=== PATIENT | male | born 1930 | race Caucasian/White ===

== ENCOUNTER → 2017-01-29 | Outpatient (CLI) | payer OTHER, MEDICARE | LOC: FCPNEURO 21:00 | PROVIDERS: ATTEND Psychiatry & Neurology Sleep Medicine | DX: G47.39 Other sleep apnea (principal) ==

== ENCOUNTER → 2018-10-08 | Outpatient (CLI) | payer OTHER, MEDICARE | LOC: BHFA 08:30 | PROVIDERS: ATTEND Internal Medicine Cardiovascular Disease | DX: I50.9 Heart failure, unspecified (principal) ==

== ENCOUNTER → 2018-10-13 | Outpatient (CLI) | payer OTHER, MEDICARE | LOC: BHFA 09:30 | PROVIDERS: ATTEND Internal Medicine Cardiovascular Disease | DX: R06.02 Shortness of breath (principal); R09.89 Other specified symptoms and signs involving the circulatory and respiratory systems; I50.31 Acute diastolic (congestive) heart failure; I25.10 Atherosclerotic heart disease of native coronary artery without angina pectoris ==

== ENCOUNTER → 2018-10-16 | Outpatient (CLI) | payer OTHER, MEDICARE | LOC: BHLMT 14:45 | PROVIDERS: ATTEND Internal Medicine Cardiovascular Disease | DX: R09.89 Other specified symptoms and signs involving the circulatory and respiratory systems (principal); I25.10 Atherosclerotic heart disease of native coronary artery without angina pectoris; I10 Essential (primary) hypertension; E78.5 Hyperlipidemia, unspecified ==

== ENCOUNTER → 2018-10-28 | Outpatient (CLI) | payer OTHER, MEDICARE | LOC: BHFA 08:30 | PROVIDERS: ATTEND Internal Medicine Cardiovascular Disease | DX: R06.02 Shortness of breath (principal); I50.9 Heart failure, unspecified | CPT/HCPCS: 78452; 93017; A9500; J2785 ==

== ENCOUNTER 2018-12-03 08:59 | Day surgery (SDC) | payer OTHER, MEDICARE ==
--- NOTE | 2018-12-03 08:52 | PDPROPOC ---
Sedation Plan of Care Sedation Plan of Care: vital signs stable, mental status noted, patient educated of risks, benefits, alternatives, patient can tolerate sedation ASA Classification: ASA 3 Planned drugs: fentanyl, midazolam Mallampati Score: Class 2 Mallampati Reference Image: Patient passed 3-3-2 rule?: Yes
--- NOTE | 2018-12-03 08:52 | PDHPUP ---
History & Physical Update H&P update statement: This history and physical update is based on an assessment of the patient which was completed after admission or registration (within 24 hours), but prior to the surgery/procedure. H&P update: H&P reviewed & patient examined, no change in patient's condition since H&P completed
[~2018-12-03 08:59] MED LIST: ACETAMINOPHEN 325 MG TAB PO PRN; ASPIRIN EC 325 MG TAB PO ONE; DIAZEPAM 5 MG TAB PO ONE; FAMOTIDINE 20 MG TAB PO ONE; NITROGLYCERIN 0.4 MG BTL SL PRN; NS 1,000 ML IV SCH; TEMAZEPAM 15 MG CAP PO PRN; diphenhydrAMINE 25 MG CAP PO ONE
[2018-12-03 09:36] LABS: PLATELET COUNT 147 10^3/uL (150-400)
[2018-12-03 09:52] LABS: INR 1.09 (0.83-1.16); PROTIME(PATIENT) 14.3 SEC (12.0-15.0)
--- NOTE | 2018-12-03 09:56 | CPEKG ---
Test Reason : OPEN Blood Pressure : / mmHG Vent. Rate : 058 BPM Atrial Rate : 059 BPM P-R Int : 188 ms QRS Dur : 100 ms QT Int : 426 ms P-R-T Axes : 046 072 027 degrees QTc Int : 419 ms Sinus rhythm Confirmed by Imer Cerda ([id number]) on 12/03/2018 9:55:39 AM Referred By: Confirmed By:Imer Cerda
[2018-12-03] MEDS ORDERED: LIDOCAINE 1% 300 MG/30 ML SDV ONE (10:24)
[2018-12-03] MEDS ORDERED: IOPAMIDOL (ISOVUE-370) 150 ML BTL IV ONE (10:24)
[2018-12-03] MEDS ORDERED: MIDAZOLAM 2 MG/2 ML VIAL ONE (10:24)
[2018-12-03] MEDS ORDERED: fentaNYL 100 MCG/2 ML INJ ONE (10:24)
--- NOTE | 2018-12-03 11:07 | PDDXCAT ---
Diagnostic Cath Note - . Date: 12/03/18 Clay Stain Mixer: Kate Indication: other (PHTN, CHF, CAD, NYHA Class III heart failure) - Procedure Access: right groin Procedure: left heart catheterization, coronary angiography, left ventriculogram - Materials Left Heart Cath size: 6F Left Heart Cath materials: JL3.5, JR4.0, pigtail Right Heart Cath size: 7F Right Heart Cath materials: PWP catheter - Findings-Left Heart Catheterization LM: The left main is 3mm in size and bifurcates into a LAD and circumflex system. The vessel is totally occluded with AASEL 0 flow, with only a trickle of flow into a ramus vessel that is quite tiney and less than 0.5 mm in size. LAD: The left anterior descending is totally occluded proximally with ASAEL 0 flow. LCX: The circumflex is totally occluded proximally with ASAEL 0 flow. RCA: The right coronary artery system is dominant. There is 80% proximal stenosis and diffuse disease throughout the body of the vessel. There is evidence of right to left collaterals to an LAD septal branch. rSVG: The rSVG to the PDA/PLV vein graft is widely patent. The rSVG to the high left circumflex of the OM system is widely patent. There is ASAEL III flow throughout. NAVARRO: The NAVARRO to the LAD is widely patent and there is ASAEL III flow. EDP: 17mmHg LVEF: 40-45% Wall motion: On the LV gram there is mildly decreased LV systolic function. The EF is 40-45%. There is anterior wall and apical hypokinesis. There is severe mitral regurgitation on pressurized injection. The visualized portion of the thoracic aortic valve reveals three sinuses of valsalva most consistent with a trileaflet valve. There is no gradient on pullback across the aortic valve. There is no evidence of donovan dissection or aneurysm formation of the thoracic aorta. - Findings-Right Heart Catheterization RA: 14/14/11mmHg, SVC SAT 56.10%, IVC SAT 71.10% RV: 51/6/17 PA: 53/10/29, PA SAT 56.30% PAOP: AO: 127/56/83 CO: 4.15L/min CI: 2.0L/min/m^2 Complications: NONE Estimated blood loss: <50ml Closure method: Angioseal Assessment: The patient has coronary artery disease. He has three prior vein grafts; the NAVARRO to the LAD, rSVG to the PDA/PLV, and rSVG to the high LCx OM system are widely patent. The patient has severe mitral regurgitation with pressurized injection and a dilated left atrium. The patient also has mildly decreased ejection fraction at 40-45%. Plan: The patient will be scheduled to see Dr. Howe in 5-7 days. He may benefit from a DARINEL to insure that he does not have eccentric MR that is only identified via DARINEL and left heart cath. (He has mild MR by transthoracic study) he may also benefit from an evaluation by Dr. Damion Goldstein to render an opinion about the management of his pulmonary hypertension even though it is likely related to his left heart. Intervention: NONE Patient Problems: Problems Problem Status Onset CAD (coronary atherosclerotic disease) Acute
[2018-12-03] MEDS ORDERED: HEPARIN 10,000 UNIT/10 ML MDV (1,000 UNIT/ML) ONE (11:26)
[2018-12-03] MEDS ORDERED: ATROPINE SULFATE 1 MG/10 ML SYR ONE (13:53)
[2018-12-03] MEDS ORDERED: SODIUM CL NASAL 45 ML BTL EACHNARE PRN (15:21)
[2018-12-03] MEDS ORDERED: ATROPINE SULFATE 1 MG/10 ML SYR IVP PRN (16:05)
== END 2018-12-03 19:01 | disposition home or self-care (01) ==
LOC: FCATH 08:59
PROVIDERS: ATTEND Internal Medicine Cardiovascular Disease
DX: I25.10 Atherosclerotic heart disease of native coronary artery without angina pectoris (principal); I34.0 Nonrheumatic mitral (valve) insufficiency; I27.20 Pulmonary hypertension, unspecified; N40.0 Benign prostatic hyperplasia without lower urinary tract symptoms; I10 Essential (primary) hypertension; E78.5 Hyperlipidemia, unspecified; G47.33 Obstructive sleep apnea (adult) (pediatric); F10.20 Alcohol dependence, uncomplicated; D64.9 Anemia, unspecified; Z95.1 Presence of aortocoronary bypass graft
CPT/HCPCS: 93005; 93461; C1769; J0461; J1644; J2250; J3010; Q9967

== ENCOUNTER 2018-12-10 07:43 | Day surgery (SDC) | payer OTHER, MEDICARE ==
[2018-12-10] MEDS ORDERED: NS 1,000 ML IV ONE (07:46)
[2018-12-10 08:30] LABS: INR 1.1 (0.83-1.16); PROTIME(PATIENT) 14.4 SEC (12.0-15.0)
--- NOTE | 2018-12-10 08:58 | PDPROPOC ---
Sedation Plan of Care Sedation Plan of Care: mental status noted, patient educated of risks, benefits , alternatives, patient can tolerate sedation ASA Classification: ASA 3 Planned drugs: other Mallampati Score: Class 2 Mallampati Reference Image: Patient passed 3-3-2 rule?: Yes
--- NOTE | 2018-12-10 09:23 | PDANEPAE ---
ANE Past Medical History - Cardiovascular History Hx Hypertension: Yes Hx CHF / Valvular Disease: Yes - Pulmonary History Hx Oxygen in Use at Home: No Hx Sleep Apnea: Yes - Endocrine History Hx Diabetes: No ANE Review of Systems Review of Systems: - Systems Neurological: Reports: seizure ANE Patient History - Allergies Allergies/Adverse Reactions: venom-wasp [wasp venom] Allergy (Verified 12/08/18 09:51) - Home Medications Home medications: home medication list seen and reviewed Home Medications: Atorvastatin Calcium [Lipitor 20 mg (*)] 40 mg PO DAILY 01/02/11 [Last Taken 06:00] Escitalopram Oxalate [Lexapro 10 MG] 20 mg PO DAILY 01/02/11 [Last Taken 06:00] PHENobarbital [PHENobarbital 30mg (*)] 15 mg PO BID 01/02/11 [Last Taken 06:00] Phenytoin Sodium Extended [Dilantin (*)] 100 mg PO DAILY 01/02/11 [Last Taken 06:00] Aspirin EC [Aspirin EC 81 mg (*)] 81 mg PO DAILY 11/06/16 [Last Taken 12/09/18 08:00] Furosemide [Lasix 20 MG (*)] 60 mg PO DAILY 11/06/16 [Last Taken 12/09/18 08:00] LORazepam [Ativan (*)] 0.5 mg PO TID PRN 11/06/16 [Last Taken 12/10/18 06:00] Metoprolol Tartrate [Lopressor 25 mg (*)] 12.5 mg PO BID 11/06/16 [Last Taken 06:00] Multivitamins [Multivitamin (*)] 1 each PO DAILY 11/06/16 [Last Taken 12/09/18 08:00] Phenytoin Sodium Extended [Dilantin (*)] 100 mg PO HS 11/06/16 [Last Taken 12/02] QUEtiapine FUMARATE [Seroquel 50 mg (*)] 50 mg PO HS 11/06/16 [Last Taken ] Zolpidem Tartrate [Ambien 10 mg] 10 mg PO HS 11/06/16 [Last Taken 12/09/18 22:00 ] Cholecalciferol (Vitamin D3) [Vitamin D3] 2,000 unit PO DAILY 12/01/18 [Last Taken 12/02/18] Cyanocobalamin [Vitamin B12 (*)] 1,000 mcg PO DAILY 12/01/18 [Last Taken ] Losartan Potassium [Cozaar 50 mg (*)] 50 mg PO HS 12/01/18 [Last Taken 12/09/18 21:00] - Anes Hx Anes Hx: no prior problems - Smoking Hx Smoking Status: Former smoker - Alcohol Use Alcohol Use: Other (History heavy use) ANE Labs/Vital Signs - Labs Result Diagrams: 12/10/18 08:08 12/10/18 08:08 - Vital Signs Height: 174.6 cm Weight: 97.5 kg ANE Physical Exam - Airway Neck exam: FROM Mallampati Score: Class 2 Mouth exam: normal dental/mouth exam - Pulmonary Pulmonary: no respiratory distress - Cardiovascular Cardiovascular: regular rate and rhythym - ASA Status ASA Status: III ANE Anesthesia Plan Anesthesia Plan: MAC
[2018-12-10] MEDS ORDERED: PROPOFOL 200 MG/20 ML VIAL ONE (09:26)
[2018-12-10] MEDS ORDERED: LIDOCAINE 1% 5 ML SDV ONE (09:26)
--- NOTE | 2018-12-10 09:48 | PDCARTEE ---
CAR DARINEL CAR DARINEL: see seperate DARINEL report. DARINEL performed uneventfully with Anesthesia present. 120mg IV propofol used. Main finding: Moderate to severe eccentric, posterior directed MR with LVEF 55- 60%. No complications. Patient to discharge home in 1-2 hrs and follow up with new consultation in [facility] with Dr. Schneider to discuss percutaneous MV clip. No change in current meds.
--- NOTE | 2018-12-10 09:58 | POSTANESTH ---
Post Anesthetic Evaluation Cardiovascular Status: Similar to Pre-Op Cond Respiratory Status: Similar to Pre-op Cond. Level of Consciousness/Mental Status: Alert and Oriented Pain Control: Adequate, Prn Tx Ordered Nausea/Vomiting Control: Adequate, Prn Tx Ordered Complications Possibly Related to Anesthesia: None Noted
--- NOTE | 2018-12-10 16:11 | ECHO ---
[email or web address] [place] [id number] Main: [phone] Fax: Transesophageal Echocardiography Name: BERONICA GUEVARA MR#: [id number] Study Date: 12/10/2018 Study Time: 08:48 AM Date of : 1930 Age: 88 year(s) Height: ( ) Weight: ( ) BSA: Gender: Male Examination: DARINEL Indication: Eval Mitral Valve Image Quality: Contrast: Requested by: Denis Howe Heart Rate: Rhythm: BP: / Procedure Staff Oracle Database Analyst: Ruddy Fuentes RDCS Reading Physician: Denis Howe MD Requesting Provider: DARINEL Exam Details Conclusions: 1)Normal LV size and systolic function with an estimated LVEF of 55-60%. 2)Severe left atrial and mild right atrial enlargement(s) noted. 3)Aortic valve sclerosis without . Mild AI noted. 4)Moderate to severe, eccentric, posterior-directed MR with mild anterior MV prolapse and abnormal posterior MV leaflet restricted motion. No MAC noted. 5)Mild TR and PI noted. 6)No PFO or ASD noted by color Doppler. Negative IV bubble study for intracardiac shunting. 7)Normal since ascending and descending thoracic aorta with no dissection flap. Mild atheroma noted along vessel brooke. Meds used : Propofol 120mg IV by Anesthesia Service. Technical difficulties: None Complications: None Plan: refer to [facility] for consideration of percutaneous MV clip. Measurements: Chambers Valvular Assessment AV/MV Valvular Assessment TV/PV Normal Normal Normal Name Value Range Name Value Range Name Value Range EF Range: 55-60 % Patient: BERONICA GUEVARA Study Date: 12/10/2018 Page 1 of 2 08:48 AM Additional Measurements: Findings: Left Ventricle: Normal global systolic LV function. The ejection fraction is estimated to be 55-60 %. Right Ventricle: Normal size right ventricle. Left Atrium: The left atrium is severely dilated. Right Atrium: The right atrium is mildly dilated. Mitral Valve: There is mild anterior mitral valve leaflet prolapse and abnormal closure of the posterior mitral valve leaflet. There is moderate to severe eccentic mitral regurgitation with no evidence of pulmonary vein reversal.. Aortic Valve: Mild aortic cusp calcification is noted. Mild aortic valve regurgitation is present. Tricuspid Valve: Mild tricuspid regurgitation is present. Pulmonic Valve: Mild pulmonic valve regurgitation is noted. Aorta: There is mild intimal thickening noted in the descending AO.. The aorta is normal. Pericardium: No pericardial effusion. l1n (No Signature Object) Patient: BERONICA GUEVARA Study Date: 12/10/2018 Page 2 of 2 08:48 AM [id number]
== END 2018-12-10 10:30 | disposition home or self-care (01) ==
LOC: FCATH 07:43
PROVIDERS: ATTEND Internal Medicine Cardiovascular Disease
PROC: B245ZZ4 Ultrasonography of Left Heart, Transesophageal (ICD-10-PCS; principal; 2018-12-10)
DX: I51.7 Cardiomegaly (principal); T82.857A Stenosis of other cardiac prosthetic devices, implants and grafts, initial encounter; I50.30 Unspecified diastolic (congestive) heart failure; I11.0 Hypertensive heart disease with heart failure; I25.10 Atherosclerotic heart disease of native coronary artery without angina pectoris; I27.20 Pulmonary hypertension, unspecified; N40.0 Benign prostatic hyperplasia without lower urinary tract symptoms; N18.9 Chronic kidney disease, unspecified; E78.5 Hyperlipidemia, unspecified; G47.33 Obstructive sleep apnea (adult) (pediatric); D64.9 Anemia, unspecified; F10.20 Alcohol dependence, uncomplicated; G40.909 Epilepsy, unspecified, not intractable, without status epilepticus; Z95.2 Presence of prosthetic heart valve; Z95.1 Presence of aortocoronary bypass graft; Z85.46 Personal history of malignant neoplasm of prostate
CPT/HCPCS: J2704

== ENCOUNTER 2018-12-19 12:28 | Day surgery (SDC) | payer OTHER, MEDICARE ==
[2018-12-19] MEDS ORDERED: BENZOCAINE UNIT DOSE SPRAY HURRICAINE MM ONE (12:30)
[2018-12-19] MEDS ORDERED: fentaNYL 100 MCG/2 ML INJ IVP ONE (12:30)
[2018-12-19] MEDS ORDERED: NS 500 ML IV ONE (12:30)
[2018-12-19] MEDS ORDERED: MIDAZOLAM 2 MG/2 ML VIAL IVP ONE (12:30)
--- NOTE | 2018-12-19 13:32 | PDANEPAE ---
ANE History of Present Illness DARINEL for mitraclip eval ANE Past Medical History - Cardiovascular History Hx Hypertension: Yes Hx Arrhythmias: Yes Hx CHF / Valvular Disease: Yes - Pulmonary History Hx Oxygen in Use at Home: No Hx Sleep Apnea: Yes - Endocrine History Hx Diabetes: No ANE Review of Systems Review of Systems: - Exercise capacity Exercise capacity: <4 METS ANE Patient History - Allergies Allergies/Adverse Reactions: venom-wasp [wasp venom] Allergy (Verified 12/08/18 09:51) - Home Medications Home medications: home medication list seen and reviewed Home Medications: Atorvastatin Calcium [Lipitor 20 mg (*)] 40 mg PO DAILY 01/02/11 [Last Taken 12/06 06:00] Escitalopram Oxalate [Lexapro 10 MG] 20 mg PO DAILY 01/02/11 [Last Taken 06:00] PHENobarbital [PHENobarbital 30mg (*)] 15 mg PO BID 01/02/11 [Last Taken 06:00] Phenytoin Sodium Extended [Dilantin (*)] 100 mg PO DAILY 01/02/11 [Last Taken 06:00] Aspirin EC [Aspirin EC 81 mg (*)] 81 mg PO DAILY 11/06/16 [Last Taken 12/19/18 06:00] Furosemide [Lasix 20 MG (*)] 60 mg PO DAILY 11/06/16 [Last Taken 12/19/18 06:00] LORazepam [Ativan (*)] 0.5 mg PO TID PRN 11/06/16 [Last Taken 12/19/18 06:00] Metoprolol Tartrate [Lopressor 25 mg (*)] 12.5 mg PO BID 11/06/16 [Last Taken 06:00] Multivitamins [Multivitamin (*)] 1 each PO DAILY 11/06/16 [Last Taken 12/09/18 08:00] Phenytoin Sodium Extended [Dilantin (*)] 100 mg PO HS 11/06/16 [Last Taken 12/18 21:00] QUEtiapine FUMARATE [Seroquel 50 mg (*)] 50 mg PO HS 11/06/16 [Last Taken 21:00] Zolpidem Tartrate [Ambien 10 mg] 10 mg PO HS 11/06/16 [Last Taken 12/18/18 21:00 ] Cholecalciferol (Vitamin D3) [Vitamin D3] 2,000 unit PO DAILY 12/01/18 [Last Taken 12/02/18] Cyanocobalamin [Vitamin B12 (*)] 1,000 mcg PO DAILY 12/01/18 [Last Taken ] Losartan Potassium [Cozaar 50 mg (*)] 50 mg PO HS 12/01/18 [Last Taken 12/18/18 21:00] - NPO status NPO Status: no food or drink >8 hours - Anes Hx Anes Hx: no prior problems - Smoking Hx Smoking Status: Former smoker - Alcohol Use Alcohol Use: None - Family Anes Hx Family Anes Hx: none ANE Labs/Vital Signs - Vital Signs Height: 173 cm Weight: 96.6 kg ANE Physical Exam - Airway Neck exam: decreased ROM Mallampati Score: Class 2 Mouth exam: normal dental/mouth exam - Pulmonary Pulmonary: no respiratory distress - Cardiovascular Cardiovascular: regular rate and rhythym - ASA Status ASA Status: III ANE Anesthesia Plan Anesthesia Plan: GA with mask
[2018-12-19] MEDS ORDERED: SUCCINYLCHOLINE CHLORIDE 200 MG/10 ML SYR IVP ONE (13:36)
[2018-12-19] MEDS ORDERED: LIDOCAINE 2% 100 MG/5 ML SYR ONE (13:36)
[2018-12-19] MEDS ORDERED: PROPOFOL 200 MG/20 ML VIAL ONE (13:36)
[2018-12-19] MEDS ORDERED: PHENYLEPHRINE HCL 100 MCG/ML SYR IVP PRN (14:21)
[2018-12-19] MEDS ORDERED: LR 500 ML IV PRN (14:21)
[2018-12-19] MEDS ORDERED: NALOXONE HCL 0.4 MG/ML INJ IVP PRN (14:21)
[2018-12-19] MEDS ORDERED: fentaNYL 100 MCG/2 ML INJ IVP PRN (14:21)
[2018-12-19] MEDS ORDERED: DEXAMETHASONE 4 MG/ML VIAL IVP PRN (14:21)
[2018-12-19] MEDS ORDERED: ONDANSETRON 4 MG/2 ML VIAL IVP PRN (14:21)
[2018-12-19] MEDS ORDERED: ALBUTEROL 3 ML DEYVIAL IH PRN (14:21)
[2018-12-19] MEDS ORDERED: ACETAMINOPHEN 500 MG TAB PO PRN (14:21)
--- NOTE | 2018-12-19 14:21 | POSTANESTH ---
Post Anesthetic Evaluation Cardiovascular Status: Normal, Stable Respiratory Status: Normal, Stable Level of Consciousness/Mental Status: Can Participate in Eval Pain Control: Adequate, Prn Tx Ordered Nausea/Vomiting Control: Adequate, Prn Tx Ordered Complications Possibly Related to Anesthesia: None Noted
--- NOTE | 2018-12-19 15:34 | ECHO ---
[email or web address] [address] [address] Main: [phone] Fax: Transesophageal Echocardiography Name: BERONICA GUEVARA MR#: [id number] Study Date: 12/19/2018 Study Time: 01:17 PM Date of : 1930 Age: 88 year(s) Height: 172.7 cm (68 in.) Weight: 96.62 kg (213 lb.) BSA: 2.1 m2 Gender: Male Examination: DARINEL Indication: Eval mitral valve Image Quality: Contrast: Requested by: Asha Phan Heart Rate: Rhythm: BP: 123 mmHg/69 mmHg Procedure Staff Brine Process Operator: Trisha [facility] Reading Physician: Asha Phan MD Requesting Provider: DARINEL Exam Details Conclusions: Normal global systolic LV function. There appears to be adequate height from mid interatrial septum to mitral valve coaptation point, approximately 4 cm. No thrombus in left appendage. There is focal prolapse of the A2 segment of the mitral valve and malcoaptation of A3-P3. Posterior mitral leaflet measures 1.0 cm. Moderate eccentric jet of mitral regurgitation. ERO is .23cm2. Regurgitant volume is 27.6ml. There is systolic blunting of pulmonary vein inflow. MV mean PG is 1mmHG. Approximate mitral area is 5.06m2. from transgastric planimetry. . Trivial to mild aortic valve regurgitation. Mild pulmonic valve regurgitation is noted. Measurements: Chambers Valvular Assessment AV/MV Valvular Assessment TV/PV Normal Normal Normal Name Value Range Name Value Range Name Value Range MV meanP mmHg ( - ) MVA (2D): 5.1 cm2 ( - ) Additional Measurements: Valvular Assessment AV/MV Name Value MV VTI: 34.70 cm Patient: BERONICA GUEVARA Study Date: 12/19/2018 Page 1 of 2 01:17 PM Findings: Left Ventricle: Normal global systolic LV function. Left Atrium: There appears to be adequate height from mid interatrial septum to mitral valve coaptation point, approximately 4 cm. Left Atrial Appendage: No thrombus in left appendage. Mitral Valve: There is focal prolapse of the A2 segment of the mitral valve and malcoaptation of A3-P3. Posterior mitral leaflet measures 1.0 cm. Moderate eccentric jet of mitral regurgitation. ERO is .23cm2. Regurgitant volume is 27.6ml. There is systolic blunting of pulmonary vein inflow. MV mean PG is 1mmHG. Approximate mitral area is 5.06m2. from transgastric planimetry. . Aortic Valve: The aortic valve is tri-leaflet. Mild aortic cusp calcification is noted. Trivial to mild aortic valve regurgitation. Tricuspid Valve: The tricuspid valve appears normal. Mild tricuspid regurgitation is present. Pulmonic Valve: The pulmonic valve is normal in appearance. Mild pulmonic valve regurgitation is noted. l1n (No Signature Object) Patient: BERONICA GUEVARA Study Date: 12/19/2018 Page 2 of 2 01:17 PM [id number]
== END 2018-12-19 15:28 | disposition home or self-care (01) ==
LOC: FCATH 12:28
PROVIDERS: ATTEND Internal Medicine Cardiovascular Disease
PROC: B245ZZ4 Ultrasonography of Left Heart, Transesophageal (ICD-10-PCS; principal; 2018-12-19)
DX: I25.10 Atherosclerotic heart disease of native coronary artery without angina pectoris (principal); I50.32 Chronic diastolic (congestive) heart failure; I11.0 Hypertensive heart disease with heart failure; I27.20 Pulmonary hypertension, unspecified; E78.00 Pure hypercholesterolemia, unspecified; K21.9 Gastro-esophageal reflux disease without esophagitis; Z95.2 Presence of prosthetic heart valve
CPT/HCPCS: J0330; J2001; J2704

== ENCOUNTER → 2019-01-05 | Outpatient (CLI) | payer OTHER, MEDICARE | LOC: FIMAGING 12:43 | PROVIDERS: ATTEND Internal Medicine Hematology & Oncology | DX: D47.2 Monoclonal gammopathy (principal); D61.818 Other pancytopenia ==

== ENCOUNTER 2019-03-16 06:02 | Inpatient (IN) | payer OTHER, MEDICARE ==
[2019-03-16] MEDS ORDERED: ceFAZolin 2 GM/DEXTROSE 100 ML IV ONE (06:30)
[2019-03-16] MEDS ORDERED: LIDOCAINE 1% 300 MG/30 ML SDV ONE (06:48)
[2019-03-16] MEDS ORDERED: PROPOFOL/EMULSION 500 MG/50 ML BOTTLE IV ONE (07:06)
[2019-03-16] MEDS ORDERED: fentaNYL 100 MCG/2 ML INJ ONE ×2 (07:06→10:23)
[2019-03-16] MEDS ORDERED: MIDAZOLAM 2 MG/2 ML VIAL ONE (07:25)
[2019-03-16] MEDS ORDERED: ROCURONIUM 100 MG/10 ML VIAL ONE (07:49)
[2019-03-16] MEDS ORDERED: ePHEDrine SULFATE 25 MG/5 ML SYR ONE ×2 (07:49→08:30)
[2019-03-16] MEDS ORDERED: LIDOCAINE 2% 5 ML SDV ONE (07:50)
[2019-03-16] MEDS ORDERED: HEPARIN 10,000 UNIT/10 ML MDV (1,000 UNIT/ML) ONE ×2 (08:19→08:29)
[2019-03-16] MEDS ORDERED: PROTAMINE SULFATE 50 MG/5 ML VIAL IVP ONE ×2 (10:08→10:47)
[2019-03-16] MEDS ORDERED: ONDANSETRON 4 MG/2 ML VIAL ONE (10:12)
[2019-03-16] MEDS ORDERED: GLYCOPYRROLATE 0.2 MG/1 ML VIAL ONE ×2 (10:20)
[2019-03-16] MEDS ORDERED: NEOSTIGMINE METHYLSULFATE 10 MG/10 ML MDV ONE (10:20)
[2019-03-16] MEDS ORDERED: ONDANSETRON DISINTEGRATING 4 MG TAB PO PRN (10:24)
[2019-03-16] MEDS ORDERED: HYDROmorphONE/DILAUDID 1 MG/ML INJ IVP PRN (10:24)
[2019-03-16] MEDS ORDERED: ONDANSETRON 4 MG/2 ML VIAL IVP PRN (10:24)
[2019-03-16] MEDS ORDERED: hydrALAZINE 20 MG/ML VIAL IVP PRN (10:24)
[2019-03-16] MEDS ORDERED: ATROPINE SULFATE 1 MG/10 ML SYR IVP PRN (10:24)
[2019-03-16] MEDS ORDERED: LIDO/EPI 1% **for epidural** 30 ML SDV ONE (10:46)
[2019-03-16] MEDS ORDERED: NALOXONE HCL 0.4 MG/ML INJ IVP PRN (11:43)
[2019-03-16] MEDS ORDERED: CEPACOL LOZENGE PO ONE (12:09)
[2019-03-16] MEDS: CEPACOL LOZENGE PO PRN ×2 (12:13→17:03)
[2019-03-16] MEDS: ACETAMINOPHEN 325 MG TAB PO SCH ×2 (14:13→18:45)
[2019-03-16] MEDS: oxyCODONE IR 5 MG TAB PO PRN ×2 (17:03→23:44)
[2019-03-16] MEDS: VODKA 50 ML BOTTLE PO SCH ×2 (17:06→21:22)
[2019-03-16] MEDS: PHENobarbital 30 MG TAB PO SCH (20:07)
[2019-03-16] MEDS: METOPROLOL TARTRATE 25 MG TAB PO SCH (20:08)
[2019-03-16] MEDS: IBUPROFEN 800 MG TAB PO PRN (20:08)
[2019-03-16] MEDS: LORazepam 0.5 MG TAB PO SCH (20:09)
[2019-03-16] MEDS ORDERED: ZOLPIDEM TARTRATE 5 MG TAB PO SCH (21:00)
[2019-03-16] MEDS ORDERED: PHENYTOIN SODIUM EXTENDED 100 MG CAP PO SCH (21:00)
[2019-03-17] MEDS: ACETAMINOPHEN 325 MG TAB PO SCH ×3 (00:28→11:12)
[2019-03-17] MEDS: LORazepam 0.5 MG TAB PO SCH (01:21)
[2019-03-17] MEDS: IBUPROFEN 800 MG TAB PO PRN (05:34)
[2019-03-17] MEDS: METOPROLOL TARTRATE 25 MG TAB PO SCH (08:13)
[2019-03-17] MEDS: PHENobarbital 30 MG TAB PO SCH (08:24)
[2019-03-17] MEDS ORDERED: LOSARTAN POTASSIUM 25 MG TAB PO SCH (09:00)
[2019-03-17] MEDS ORDERED: ESCITALOPRAM OXALATE 10 MG TAB PO SCH (09:00)
[2019-03-17] MEDS ORDERED: MULTIVITAMINS 1 EACH TAB PO SCH (09:00)
[2019-03-17] MEDS ORDERED: PHENYTOIN SODIUM EXTENDED 100 MG CAP PO SCH (09:00)
[2019-03-17] MEDS ORDERED: CYANO/VITAMIN B12 1000 MCG TAB PO SCH (09:00)
[2019-03-17] MEDS ORDERED: ASPIRIN EC 81 MG TAB PO SCH (09:00)
[2019-03-17] MEDS ORDERED: ATORVASTATIN CALCIUM 20 MG TAB PO SCH (09:00)
[2019-03-17] MEDS ORDERED: FUROSEMIDE 80 MG TAB PO SCH (09:00)
[2019-03-17] MEDS ORDERED: CHOLECALCIFEROL VIT D3 2,000 UNITS TAB/CAP PO SCH (09:00)
== END 2019-03-17 11:27 | disposition home or self-care (01) | DRG 229 ==
DX: I34.0 Nonrheumatic mitral (valve) insufficiency (principal); Z00.6 Encounter for examination for normal comparison and control in clinical research program; I25.10 Atherosclerotic heart disease of native coronary artery without angina pectoris; C90.00 Multiple myeloma not having achieved remission; Z95.1 Presence of aortocoronary bypass graft

== ENCOUNTER → 2019-04-16 | Outpatient (CLI) | payer OTHER, MEDICARE | LOC: FCP 14:02 ==

== ENCOUNTER 2019-05-10 21:13 | Emergency (ER) | payer OTHER, MEDICARE ==
--- NOTE | 2019-05-10 22:14 | EDPHY ---
H & P Stated Complaint[facility] DEN[facility] LOC Time Seen by Provider: 05/10/19 21:58 HPI/ROS: HPI: The patient presents with fall with head injury. The patient was at home and missed a step. He fell forward onto his left hand and then fell onto his left side hitting his posterior occiput on a chair. He has a scalp laceration. He did not lose consciousness. This happened at about 8:00 p.m.. He does not have a headache, nausea, vomiting. He does take a baby aspirin daily. He denies any other complaints. REVIEW OF SYSTEMS 10 systems were reviewed and negative with the exception of the elements mentioned in the history of present illness. PMHx: CAD status post CABG, hypertension, depression TRAUMA PHYSICAL General Appearance: Alert, no distress Head: 2 cm linear scalp laceration of the posterior occiput with small amount of active bleeding, does not involve the galea Eyes: Pupils equal, round, reactive ENT, Mouth: No hemotypanium, no oral trauma Neck: Non- tender, trachea midline Respiratory: No chest wall tenderness, no subcutaneous air, lungs clear bilaterally Cardiovascular: Regular rate and rhythm Abdomen: Abdomen is soft and non-tender, pelvis stable Skin: No lacerations, No abrasion Back: No midline T/L/S pain Extremities: Left thenar eminence is erythematous and minimally tender to palpation with full range of motion of the left thumb, Non-tender, full range of motion Neurological: A&Ox3, GCS=15,normal motor function with 5/5 strength in all 4 extremities, normal sensory exam Source: Patient Exam Limitations: No limitations - Personal History Current Tetanus/Diphtheria Vaccine: Yes Tetanus Vaccine Date: 2012 - Medical/Surgical History Hx Asthma: No Hx Chronic Respiratory Disease: No Hx Diabetes: No Hx Cardiac Disease: Yes Hx Renal Disease: No Hx Cirrhosis: No Hx Alcoholism: No Hx HIV/AIDS: No Hx Splenectomy or Spleen Trauma: No Other PMH: PMH: seizure, high cholesterol, HTN, depression, chf, avr 2010, bph, cad, cancer prostate, carotid stenosis, phtn, depression,. PSH: CABGx2, stents. - Social History Smoking Status: Former smoker Constitutional: Initial Vital Signs Temperature (C) 36.5 C 05/10/19 21:15 Heart Rate 86 05/10/19 21:15 Respiratory Rate 18 05/10/19 21:15 Blood Pressure 147/71 H 05/10/19 21:15 O2 Sat (%) 91 L 05/10/19 21:15 O2 Delivery Mode Room Air Allergies/Adverse Reactions: venom-wasp [wasp venom] Allergy (Verified 05/10/19 21:17) Home Medications: Medication Instructions Recorded Atorvastatin Calcium [Lipitor 20 40 mg PO DAILY 01/02/11 mg (*)] Escitalopram Oxalate [Lexapro 10 20 mg PO DAILY 01/02/11 MG] PHENobarbital [PHENobarbital 30mg 15 mg PO BID 01/02/11 (*)] Phenytoin Sodium Extended 100 mg PO DAILY 01/02/11 [Dilantin (*)] Aspirin EC [Aspirin EC 81 mg (*)] 81 mg PO DAILY 11/06/16 LORazepam [Ativan (*)] 0.5 mg PO BID 11/06/16 Metoprolol Tartrate [Lopressor 25 25 mg PO BID 11/06/16 mg (*)] Multivitamins [Multivitamin (*)] 1 each PO DAILY 11/06/16 Phenytoin Sodium Extended 200 mg PO HS 11/06/16 [Dilantin (*)] Cholecalciferol (Vitamin D3) 2,000 unit PO DAILY 12/01/18 [Vitamin D3] Cyanocobalamin [Vitamin B12 (*)] 1,000 mcg PO DAILY 12/01/18 Furosemide [Lasix 80 MG (*)] 80 mg PO DAILY 03/09/19 Losartan Potassium [Cozaar 25 mg 12.5 mg PO DAILY 03/09/19 (*)] Zolpidem Tartrate [Ambien 5MG (*)] 5 mg PO HS 03/09/19 Acetaminophen [Tylenol 325mg (*)] 650 mg PO Q6HRS tab 03/17/19 Medical Decision Making - Diagnostics Imaging Results: Imaging Impressions Head CT 05/10/19 21:31 Impression: 1. Stable moderate atrophy. 2. No hemorrhage, mass effect, or definite acute peripheral infarct. 3. Stable mild to moderate nonspecific hypodensities in the white matter of bilateral cerebral hemispheres. Differential diagnosis includes microvascular ischemic disease, post-infectious/post-inflammatory sequela, atypical demyelinating disease, or migraine-related sequela. Small white matter lacunar infarcts may also have this appearance. 4. Soft tissue swelling over the left posterior parietal bone superiorly without fracture If symptoms worsen, additional imaging may be necessary. Findings discussed with Greg Morton M.D. at 22:12 hour, 05/10/2019. CT head without contrast is unremarkable, discussed with Dr. Dumont of Radiology. Procedures: LACERATION REPAIR Procedure: Laceration repair. Verbal consent was obtained from the patient. The linear 2 cm laceration on the posterior occiput was anesthetized using lidocaine with epinephrine. The wound was scrubbed, draped and explored to its base with a gloved finger. There were no deep structures involved. . The wound was repaired with 4 nidia. The wound repair was simple. The procedure was performed by myself. Patient had bleeding of his scalp postprocedure early likely related to small vessel bleed. He had Gel-Foam applied to the wound with bulky dressing with improvement in the bleeding. Differential Diagnosis: This is an 88-year-old male with history of CAD and a baby aspirin who was walking, tripped and fell on a stair and has sustained a small laceration to his posterior occiput. He fell onto his left hand but does not appear to have any significant injuries there. Given his age, CT scan of his head was performed and was unremarkable. We repaired his scalp laceration with nidia. Last tetanus vaccine 2013, will not update today. Departure - Departure Disposition: Home, Routine, Self-Care Clinical Impression: Fall from standing Qualifiers: Encounter type: initial encounter Qualified Code(s): W19.XXXA - Unspecified fall, initial encounter Occipital scalp laceration Qualifiers: Encounter type: initial encounter Qualified Code(s): S01.01XA - Laceration without foreign body of scalp, initial encounter Condition: Good Instructions: Staple Care (ED) Additional Instructions: The nidia in your scalp should be removed in 10 days, on May 20. You can come to the emergency department commercial front load driver for this or see if your primary care physician can remove them. Referrals: Isabelle Bowen MD [Primary Care Provider] - As per Instructions
[2019-05-10 23:07] VITALS: BP 138/68
== END 2019-05-10 23:06 | disposition home or self-care (01) ==
PROC: 0HQ0XZZ Repair Scalp Skin, External Approach (ICD-10-PCS; principal; 2019-05-10)
DX: S01.01XA Laceration without foreign body of scalp, initial encounter (principal); W10.8XXA Fall (on) (from) other stairs and steps, initial encounter; Y92.018 Other place in single-family (private) house as the place of occurrence of the external cause; I25.10 Atherosclerotic heart disease of native coronary artery without angina pectoris; I10 Essential (primary) hypertension; Z95.5 Presence of coronary angioplasty implant and graft; Z95.2 Presence of prosthetic heart valve; Z95.1 Presence of aortocoronary bypass graft; Z87.891 Personal history of nicotine dependence; Z85.46 Personal history of malignant neoplasm of prostate